=== PATIENT | female | born 1970 | race Caucasian/White ===

== ENCOUNTER → 2020-07-01 | Outpatient (CLI) | payer SELFPAY | LOC: M LABSMTC 11:49 | PROVIDERS: ATTEND Pediatrics | DX: Z20.828 Contact with and (suspected) exposure to other viral communicable diseases (principal) ==

== ENCOUNTER → 2022-04-06 | Outpatient (CLI) | payer OTHER, SELFPAY | LOC: M WUC 15:10 | PROVIDERS: ATTEND Nurse Practitioner Family | DX: M79.671 Pain in right foot (principal); M25.561 Pain in right knee; M17.11 Unilateral primary osteoarthritis, right knee ==

== ENCOUNTER → 2023-01-11 | Outpatient (REF) | LOC: M LAB 14:42 | PROVIDERS: ATTEND Nurse Practitioner Adult Health | DX: Z02.89 Encounter for other administrative examinations (principal) ==

== ENCOUNTER → 2024-08-29 | Outpatient (CLI) | payer OTHER | LOC: M WHC 12:47 | PROVIDERS: ATTEND Nurse Practitioner Family | DX: Z12.31 Encounter for screening mammogram for malignant neoplasm of breast (principal) ==